=== PATIENT | male | born 1955 | race Two or more races ===

== ENCOUNTER 2019-12-20 06:26 | Day surgery (SDC) | payer OTHER, SELFPAY ==
--- NOTE | 2019-12-19 12:05 | HO.ANESPROP2 ---
Documented by User: July Keenan 12/19/19 12:06 HPI - Anesthesia Eval Consult details Narrative: 64yo M for Colonoscopy [facility] Past Medical History Medical History Abnormal colonoscopy Elevated LFTs HTN (hypertension) Hypothyroidism Surgical History Surgical History Hx of appendectomy Social History Social History Smoking Status: Never smoker Second Hand Smoke Exposure: Yes Use of substances other than those prescribed or required for medical reasons: No Advance Directives: No Meds Allergies Allergy/AdvReac Type Severity Reaction Status Date / Time penicillin G Allergy Unknown hives Verified 12/19/19 11:27 Home Medications Medication Instructions Recorded Confirmed Type levothyroxine 112 mcg DAILY 12/19/19 12/20/19 History metoprolol succinate 25 mg PO DAILY 12/19/19 12/19/19 History milk thistle 12/19/19 History niacin 500 mg PO DAILY 12/19/19 12/19/19 History omega-3 fatty acids-vitamin E cap 12/19/19 History [Fish Oil] saw palmetto 12/19/19 12/19/19 History Exam Exam Date and Time: December 19, 2019 1205 Assessment and Plan Assessment Anesthesia Assessment: Chart Reviewed Documented by User: Richi Wynn 12/20/19 07:08 [facility] Past Medical History Medical History Abnormal colonoscopy Elevated LFTs HTN (hypertension) Hypothyroidism Surgical History Surgical History Hx of appendectomy Social History Social History Smoking Status: Never smoker Second Hand Smoke Exposure: Yes Use of substances other than those prescribed or required for medical reasons: No Advance Directives: No Meds Allergies Allergy/AdvReac Type Severity Reaction Status Date / Time penicillin G Allergy Unknown hives Verified 12/19/19 11:27 Home Medications Medication Instructions Recorded Confirmed Type levothyroxine 112 mcg DAILY 12/19/19 12/20/19 History metoprolol succinate 25 mg PO DAILY 12/19/19 12/19/19 History milk thistle 12/19/19 History niacin 500 mg PO DAILY 12/19/19 12/19/19 History omega-3 fatty acids-vitamin E cap 12/19/19 History [Fish Oil] saw palmetto 12/19/19 12/19/19 History Exam Airway Mallampati Class: II TM Dist: >3cm Neck ROM: Full Loose/Missing/Broken Teeth: No ([id number]+[id number]) Heart: cta b/l Assessment and Plan Assessment Anesthesia Assessment: Anesthesia Plan Discussed, Smoking Cess. Discussed and PAT Visit Final Anesthetic Review NPO: Yes ASA Class: II Final Preanesthetic Review: No Changes in Pt Med Stat, Meds/Allgs Chart Reviewed, Consent Obtained/Reviewed and Anes Risks/Benef Reviewed Patient Risk: Low Procedure Risk: Low Assessment/Block/Sedation in SS: Assess/Block/Sedation-SS Anesthetic Plan Anesthetic Plan: MAC: Disposition: Standard PACU
[2019-12-20 06:44] VITALS: BMI 21.9
[2019-12-20 06:52] VITALS: BP 127/86; PULSE 56; RESP 16; TEMP 36.3; O2SAT 100
[2019-12-20] MEDS: Lactated Ringers 1,000 ML 100 ML IVCONT (07:03)
[2019-12-20 08:36] VITALS: BP 90/56; PULSE 58; RESP 14; TEMP 37.1; O2SAT 100
--- NOTE | 2019-12-20 08:38 | PM.OP ---
Brief Operative Note Date of procedure: 12/20/19 Pre-op diagnosis: Screening Post-op diagnosis: other (Colon polyp, Diverticulosis, Internal hemorrhoids) Procedure: Colonoscopy to cecum with biopsy and removal of polyp Surgeon: Shashank Hickey Anesthesia: MAC Estimated blood loss (mL): 2.0 Pathology: other (A. Cecal polyp) Condition: stable Disposition: PACU
[2019-12-20 08:51] VITALS: BP 106/56; PULSE 59; RESP 16; TEMP 37.1; O2SAT 100
--- NOTE | 2019-12-20 09:13 | HO.POSTANES ---
Post Anesthesia Evaluation Post Anesthesia Evaluation Vital Signs: Vital Signs Temp Pulse Resp BP Pulse Ox 12/20/19 08:51 98.7 F 59 16 106/56 L 100 12/20/19 08:36 98.7 F 58 14 90/56 L 100 12/20/19 06:52 97.4 F 56 16 127/86 100 Anesthesia: Monitored Mental Status: Awake Pain Control: Satisfactory Nausea/Vomiting: None Hydration: Adequate Anesthesia-Related Issues: No Anes. Related Issues
--- NOTE | 2019-12-20 09:40 | OP_ITS ---
SURGEON: Shashank Hickey MD INDICATIONS: The patient presents for evaluation of colorectal cancer screening. Full consent has been obtained from him for this, including risks of bleeding and perforation. PREOPERATIVE DIAGNOSIS: Colorectal cancer screening. POSTOPERATIVE DIAGNOSIS: Colorectal cancer screening, small colon polyp, mild sigmoid diverticulosis, internal hemorrhoids. PROCEDURE PERFORMED: Colonoscopy to cecum with biopsy and removal of polyp. ESTIMATED BLOOD LOSS: COMPLICATIONS: ANESTHESIA: Monitored anesthesia care. ASSISTANTS: SPECIMENS: DESCRIPTION OF PROCEDURE: The patient was placed in the left lateral decubitus position. The digital rectal exam revealed no abnormalities. The Olympus video pediatric colonoscope was entered into the rectum and advanced easily to the cecum. Once in the cecum, I did identify normal-appearing cecal pouch with appendiceal orifice and a normal-appearing ileocecal valve. The entire cecum was well visualized and appeared normal other than an approximately 3 mm polyp, which was biopsied and completely removed with cold biopsy forceps. There was transillumination of light deep in the right lower quadrant. The scope was then slowly withdrawn assessing all mucosal surfaces carefully. Preparation was excellent. I did not visualize any other polyps, colitis, nor angiodysplasia. There was a mild amount of sigmoid diverticulosis. In the rectum, scope was retroflexed visualizing internal hemorrhoids, but no other pathology. The rectal mucosa appeared normal. The scope was straightened out and withdrawn from the patient. He tolerated the procedure well and was returned to recovery area in stable condition. IMPRESSION: 1. Small colon polyp, status post biopsy and removal. 2. Mild sigmoid diverticulosis. 3. Internal hemorrhoids. PLAN: The results of the biopsy will be checked. If this is a tubular adenoma, I would recommend a followup colonoscopy in 5 years. If it is only hyperplastic, I would then recommend a followup colonoscopy in 10 years. He will otherwise see me on a p.r.n. basis. MD LALITA Herrera/LOTTIE / [phone]
== END 2019-12-20 09:10 | disposition home or self-care (01) ==
PROVIDERS: PCP Internal Medicine; Visit Provider Internal Medicine
PROC: 0DJD8ZZ Inspection of Lower Intestinal Tract, Via Natural or Artificial Opening Endoscopic (ICD-10-PCS; CPT 45378; principal; 2019-12-20 07:30)
DX: Z12.11 Encounter for screening for malignant neoplasm of colon (principal); Z83.71 Family history of colonic polyps; K63.5 Polyp of colon; K62.1 Rectal polyp; K57.30 Diverticulosis of large intestine without perforation or abscess without bleeding; K64.8 Other hemorrhoids; I10 Essential (primary) hypertension; E03.9 Hypothyroidism, unspecified; Z79.899 Other long term (current) drug therapy; Z88.0 Allergy status to penicillin
CPT/HCPCS: 45380; 88305

== ENCOUNTER 2020-02-23 11:02 | Outpatient (REF) | payer OTHER, SELFPAY ==
[2020-02-23 14:43] LABS: Cholesterol 257 mg/dL; HDL Cholesterol 41 mg/dL; LDL Cholesterol Calculated 191 mg/dl; Triglycerides 125 mg/dL
[2020-02-23 15:03] LABS: Free T4 (Free Thyroxine) 1.29 ng/dL (0.71-1.85)
[2020-02-24 09:42] LABS: Triiodothyronine T3 Free 3.7 pg/mL (2.3-4.2)
== END 2020-02-23 11:03 | disposition home or self-care (01) ==
LOC: HO.HMGCLDS 11:02
PROVIDERS: PCP Internal Medicine; Visit Provider Internal Medicine
DX: E78.2 Mixed hyperlipidemia (principal); E03.9 Hypothyroidism, unspecified; N40.0 Benign prostatic hyperplasia without lower urinary tract symptoms; I10 Essential (primary) hypertension; R79.89 Other specified abnormal findings of blood chemistry; Z12.5 Encounter for screening for malignant neoplasm of prostate
CPT/HCPCS: 36415; 80061; 84439; 84481

== ENCOUNTER 2020-09-18 08:33 | Outpatient (REF) | payer OTHER, SELFPAY ==
[2020-09-18 11:21] LABS: Hematocrit 48.6 % (42-52); Hemoglobin 16.2 g/dl (14.0-18.0); Mean Corpuscular HGB Conc 33.3 g/dl (31.0-36.0); Mean Corpuscular Hemoglobin 29.9 pg (27.0-33.0); Mean Corpuscular Volume 89.8 fL (80-98); Mean Platelet Volume 9.5 fL (9.4-12.4); Platelet Count 254 X10*3/uL (160-400); Red Blood Count 5.41 X10*6/uL (4.60-5.80); Red Cell Distribution Width 13.3 % (11.0-16.0); White Blood Count 6.5 X10*3/uL (4.8-10.8)
[2020-09-18 12:29] LABS: Alanine Aminotransferase 23 U/L (0-40); Albumin Level 4.6 g/dL (3.5-5.0); Alkaline Phosphatase 134 U/L (39-117); Anion Gap 14 (12-20); Aspartate Amino Transferase 25 U/L (5-37); Bilirubin Total 0.9 mg/dL (0.0-1.0); Blood Urea Nitrogen 16 mg/dL (9-16); Calcium 10.1 mg/dL (8.4-10.2); Carbon Dioxide 27 mmol/L (22-29); Chloride 101 mmol/L (96-108); Cholesterol 239 mg/dL; Estimated Glomerular Filt Rate 52; HDL Cholesterol 39 mg/dL; LDL Cholesterol Calculated 173 mg/dl; Potassium 4.6 mmol/L (3.3-5.1); Sodium 137 mmol/L (135-145); Total Protein 7.5 g/dL (6.5-8.0); Triglycerides 137 mg/dL
[2020-09-18 12:43] LABS: Glucose Fasting 92 mg/dL (60-99)
[2020-09-18 12:53] LABS: TSH reflex Free T4 0.01 uIU/mL (0.32-4.0)
[2020-09-18 13:52] LABS: Prostate Specific Antigen Scr 4.81 ng/mL (<0.05-4.0)
== END 2020-09-18 08:34 | disposition home or self-care (01) ==
LOC: HO.HMGCLDS 08:33
PROVIDERS: PCP Internal Medicine; Visit Provider Internal Medicine
DX: Z00.00 Encounter for general adult medical examination without abnormal findings (principal); Z12.5 Encounter for screening for malignant neoplasm of prostate; E03.9 Hypothyroidism, unspecified; I10 Essential (primary) hypertension; N40.0 Benign prostatic hyperplasia without lower urinary tract symptoms; R79.89 Other specified abnormal findings of blood chemistry; E78.5 Hyperlipidemia, unspecified
CPT/HCPCS: 36415; 80053; 80061; 84153; 84439; 84443; 85027

== ENCOUNTER → 2020-11-27 15:04 | Outpatient (BNVA) | payer OTHER, SELFPAY | PROVIDERS: PCP Internal Medicine; Visit Provider Urology ==

== ENCOUNTER 2021-01-15 09:47 | Outpatient (REF) | payer OTHER, SELFPAY ==
[2021-01-15 12:15] LABS: PSA,Total (Free>4and<10) 2.44 ng/mL (0.00-4.00)
== END 2021-01-15 09:48 | disposition home or self-care (01) ==
LOC: HO.HMGCLDS 09:47
PROVIDERS: PCP Internal Medicine; Visit Provider Urology
DX: N40.0 Benign prostatic hyperplasia without lower urinary tract symptoms (principal); Z12.5 Encounter for screening for malignant neoplasm of prostate
CPT/HCPCS: 36415; 84153

== ENCOUNTER → 2021-01-28 08:44 | Outpatient (BNVA) | payer OTHER, SELFPAY | PROVIDERS: PCP Internal Medicine; Visit Provider Urology ==

== ENCOUNTER 2021-02-25 09:29 | Outpatient (REF) | payer OTHER, SELFPAY ==
[2021-02-25 12:17] LABS: Prostate Specific Antigen 2.04 ng/mL (<0.05-4.0)
== END 2021-02-25 09:30 | disposition home or self-care (01) ==
LOC: HO.HMGCLDS 09:29
PROVIDERS: Urology; Visit Provider Internal Medicine
DX: Z12.5 Encounter for screening for malignant neoplasm of prostate (principal); N40.1 Benign prostatic hyperplasia with lower urinary tract symptoms; N13.8 Other obstructive and reflux uropathy
CPT/HCPCS: 36415; 84153

== ENCOUNTER 2021-02-28 12:48 | Outpatient (REF) | payer OTHER, SELFPAY ==
[2021-02-28 13:47] LABS: Hematocrit 45.6 % (42.0-52.0); Hemoglobin 15.4 g/dl (14.0-18.0); Mean Corpuscular HGB Conc 33.8 g/dl (31.0-36.0); Mean Corpuscular Hemoglobin 30.3 pg (27.0-33.0); Mean Corpuscular Volume 89.8 fL (80.0-98.0); Mean Platelet Volume 9.6 fL (9.4-12.4); Platelet Count 238 X10*3/uL (160-400); Red Blood Count 5.08 X10*6/uL (4.60-5.80); Red Cell Distribution Width 13.2 % (11.0-16.0); White Blood Count 7.6 X10*3/uL (4.8-10.8)
[2021-02-28 14:11] LABS: Alanine Aminotransferase 30 U/L (0-40); Albumin Level 4.5 g/dL (3.5-5.0); Alkaline Phosphatase 126 U/L (39-117); Anion Gap 11 (12-20); Aspartate Amino Transferase 36 U/L (5-37); Bilirubin Total 0.7 mg/dL (0.0-1.0); Blood Urea Nitrogen 20 mg/dL (9-16); Calcium 9.9 mg/dL (8.4-10.2); Carbon Dioxide 29 mmol/L (22-29); Chloride 103 mmol/L (96-108); Cholesterol 288 mg/dL; Estimated Glomerular Filt Rate > 60; Glucose Fasting 95 mg/dL (60-99); HDL Cholesterol 38 mg/dL; LDL Cholesterol Calculated 221 mg/dl; Potassium 4.4 mmol/L (3.3-5.1); Sodium 139 mmol/L (135-145); Total Protein 7.5 g/dL (6.5-8.0); Triglycerides 148 mg/dL
[2021-02-28 14:33] LABS: TSH reflex Free T4 0.03 uIU/mL (0.32-4.0)
[2021-02-28 15:07] LABS: Free T4 (Free Thyroxine) 1.24 ng/dL (0.71-1.85)
== END 2021-02-28 12:49 | disposition home or self-care (01) ==
LOC: HO.HMGCLDS 12:48
PROVIDERS: PCP Internal Medicine; Visit Provider Internal Medicine
DX: Z00.00 Encounter for general adult medical examination without abnormal findings (principal); E03.9 Hypothyroidism, unspecified; E78.5 Hyperlipidemia, unspecified; I10 Essential (primary) hypertension
CPT/HCPCS: 36415; 80053; 80061; 84439; 84443; 85027

== ENCOUNTER 2021-06-06 09:03 | Outpatient (REF) | payer OTHER, SELFPAY ==
[2021-06-06 12:11] LABS: TSH reflex Free T4 0.01 uIU/mL (0.32-4.0)
[2021-06-06 13:12] LABS: Free T4 (Free Thyroxine) 1.45 ng/dL (0.71-1.85)
== END 2021-06-06 09:04 | disposition home or self-care (01) ==
LOC: HO.HMGCLDS 09:03
PROVIDERS: Visit Provider Internal Medicine
DX: E03.9 Hypothyroidism, unspecified (principal)
CPT/HCPCS: 36415; 84439; 84443

== ENCOUNTER 2022-05-18 09:57 | Outpatient (REF) | payer OTHER, SELFPAY ==
[2022-05-18 11:24] LABS: Hematocrit 43.9 % (42.0-52.0); Hemoglobin 14.6 g/dl (14.0-18.0); Mean Corpuscular HGB Conc 33.3 g/dl (31.0-36.0); Mean Corpuscular Hemoglobin 30.1 pg (27.0-33.0); Mean Corpuscular Volume 90.5 fL (80.0-98.0); Mean Platelet Volume 9.6 fL (9.4-12.4); Platelet Count 237 X10*3/uL (160-400); Red Blood Count 4.85 X10*6/uL (4.60-5.80); Red Cell Distribution Width 13.2 % (11.0-16.0); White Blood Count 7.6 X10*3/uL (4.8-10.8)
[2022-05-18 11:34] LABS: Alanine Aminotransferase 22 U/L (0-40); Albumin Level 4.2 g/dL (3.5-5.0); Alkaline Phosphatase 157 U/L (39-117); Anion Gap 14 (12-20); Aspartate Amino Transferase 25 U/L (5-37); Bilirubin Total 0.7 mg/dL (0.0-1.0); Blood Urea Nitrogen 17 mg/dL (9-16); Calcium 9.2 mg/dL (8.4-10.2); Carbon Dioxide 27 mmol/L (22-29); Chloride 106 mmol/L (96-108); Cholesterol 143 mg/dL; Estimated Glomerular Filt Rate 53; Glucose Fasting 100 mg/dL (60-99); HDL Cholesterol 38 mg/dL; LDL Cholesterol Calculated 90 mg/dl; Potassium 4.5 mmol/L (3.3-5.1); Sodium 142 mmol/L (135-145); Total Protein 6.7 g/dL (6.5-8.0); Triglycerides 78 mg/dL
== END 2022-05-18 09:58 | disposition home or self-care (01) ==
LOC: HO.HMGCLDS 09:57
PROVIDERS: PCP Internal Medicine; Visit Provider Internal Medicine
DX: Z00.00 Encounter for general adult medical examination without abnormal findings (principal); E03.9 Hypothyroidism, unspecified; E78.5 Hyperlipidemia, unspecified; I10 Essential (primary) hypertension
CPT/HCPCS: 36415; 80053; 80061; 85027

== ENCOUNTER 2022-05-26 13:53 | Outpatient (REF) | payer OTHER, MEDICARE, SELFPAY ==
[2022-05-26 17:40] LABS: PSA,Total (Free>4and<10) 2.21 ng/mL (0.00-4.00); TSH reflex Free T4 0.52 uIU/mL (0.32-4.0)
== END 2022-05-26 13:54 | disposition home or self-care (01) ==
LOC: HO.HMGCLDS 13:53
PROVIDERS: PCP Internal Medicine; Visit Provider Internal Medicine
DX: Z00.00 Encounter for general adult medical examination without abnormal findings (principal); E03.9 Hypothyroidism, unspecified; Z12.5 Encounter for screening for malignant neoplasm of prostate
CPT/HCPCS: 36415; 84153; 84443

== ENCOUNTER 2022-09-01 08:48 | Outpatient (AMB) | payer OTHER, SELFPAY ==
--- NOTE | 2022-09-01 09:01 | A.OFFVIS_ITS ---
Intake Intake Visit Reasons: 1Y PSA/BPH(SET) Intake Note: Patient is present for Follow Up PSA/PVR Urology Med: Finasteride, Tamsulosin Antibiotic Allergy: Penicillin Blood Thinner: None PVR: 45ml Allergies penicillin G Allergy (Unknown, Verified 09/01/22 09:03) hives Medication List - Last Reconciled 09/01/22 by Med Watts MD levothyroxine 112 mcg PO DAILY metoprolol succinate ER 25 mg PO DAILY [milk thistle ] niacin 500 mg PO DAILY omega-3 fatty acids-vitamin E 1,000 mg caps [saw palmetto ] HPI HPI Comments History of Present Illness Details Harsha is a pleasant male. He is a patient of Dr. Durbin. He is seen for the following urologic conditions - lower urinary tract symptoms PSA remains low No longer taking prostate medications Minimal symptoms Follow-up 12 months Lower urinary tract symptoms Current evaluation for response to therapy Initial presentation for lower urinary tract symptoms Associated elevated PSA Has weakness of stream and nocturia 2-3 times Current medications - Prior therapy includes combination medication DIOMEDES large prostate PSA 02/27 2.1, 09/28 4.8, 01/28 2.4, 03/01 2.1, 05/31 2.2 PFSH Medical History Abnormal colonoscopy Annual physical exam Annual physical exam BPH (benign prostatic hyperplasia) Hoarseness HTN (hypertension) Hyperlipemia Hypothyroidism Surgical History Hx of appendectomy Family History Father Diabetes Mother Hypertension Social History Housing: House Patient Tobacco Use Status: Never used Tobacco e-Cigarette/Vaping Use: Never Used Second Hand Smoke Exposure: Yes Current occupational status: retired Cognitive needs: No Hearing needs: No Vision needs: Yes Review of Systems Const Denies chills and Denies fever(s) Card Reports no additional complaints and Denies syncope Resp Denies cough GI Denies abdominal pain and Denies heartburn Reports as per HPI and Denies change in libido Neuro Denies syncope Psych Denies change in libido Endo Denies change in libido Physical Exam Const General: cooperative, healthy appearing, comfortable and no acute distress Orientation/consciousness: patient oriented x3 HEENT Face and sinus: Yes normal facial exam Mouth: moist mucous membranes Neck Neck: Yes normal visual inspection, Yes full ROM and Yes trachea midline Chest Chest palpation & inspection: normal inspection of the chest Resp Effort & Inspection: normal respiratory effort, able to speak in complete sentences and no respiratory distress GI Inspection: Yes normal to inspection Back/Spine/Pelvis Cervical Spine: normal cervical lordosis Thoracic/Lumbar Spine: thoracic and lumbar spine normal to inspection Skin General skin exam: no rashes or lesions noted Neuro General: patient oriented x3, gait normal, tone normal and moves all extremities Extrem General: Yes normal to inspection and Yes capillary refill normal Office Procedures Post Void Residual Post Residual Void Post Void Residual (PVR): 45 11888-Brdb Void Residual by ultrasound Results AMB Urinalysis, Automated UA Leukoctes 0 Raya/uL Last Edit by Malu Johnson [facility] on 09/01/22 09:09 UA Nitrite Negative Last Edit by Malu Johnson [facility] on 09/01/22 09:09 UA Urobilinogen 0.2 mg/dL Last Edit by Malu Johnson A on 09/01/22 09:0 9 UA Protein 0 mg/dL Last Edit by Malu Johnson [facility] on 09/01/22 09:09 UA pH 5.5 Last Edit by Malu Johnson A on 09/01/22 09:09 UA Blood 0 Zaid/uL Last Edit by Malu Johnson [facility] on 09/01/22 09:09 UA Specific Casar 1.030 Last Edit by Malu Johnson [facility] on 09/01/22 09: 09 UA Ketone Negative Last Edit by Malu Johnson [facility] on 09/01/22 09:09 UA Bilirubin 0 mg/dL Last Edit by Malu Johnson [facility] on 09/01/22 09:09 UA Glucose 0 mg/dL Last Edit by Malu Johnson [facility] on 09/01/22 09:09 Results Reviewed Results Reviewed: Laboratory Last Values Urine pH (Auto) 5.5 09/01/22 09:04 Specific Casar (Auto) 1.030 09/01/22 09:04 Urine Protein (Auto) 0 mg/dL 09/01/22 09:04 Glucose (UA)(Auto) 0 mg/dL 09/01/22 09:04 Urine Ketones (Auto) Negative 09/01/22 09:04 Urine Blood (Auto) 0 Zaid/uL 09/01/22 09:04 Urine Nitrite (Auto) Negative 09/01/22 09:04 Urine Bilirubin (Auto) 0 mg/dL 09/01/22 09:04 Urine Urobilinogen (Auto) 0.2 mg/dL 09/01/22 09:04 Leukocyte Esterase (Auto) 0 Raya/uL 09/01/22 09:04 Assessment & Plan Assessment & Plan (1) Nocturia more than twice per night: Code(s): R35.1 - Nocturia (2) BPH (benign prostatic hyperplasia): Code(s): N40.0 - Benign prostatic hyperplasia without lower urinary tract symptoms Plan Twelve month follow-up Orders: Orders Prostate Specific Antigen 364 Days R35.1 - Nocturia AMB Urinalysis Automated Today Z13.9 - Encounter for screening, unspecified AMB Post Void Residual by ultrasound Today N40.0 - Benign prostatic hyperplasia without lower urinary tract symptoms Patient Instructions: Imaging studies, laboratory and physical exam results were discussed and reviewed in detail. No major barriers to patient understanding were identified. An opportunity to ask questions regarding the treatment plan was provided. All questions were answered. The patient expressed understanding and agreement with the above treatment plan. The patient is aware they should contact our office by phone for worsening of their current condition or the appearance of new urologic symptoms. Compliance is encouraged with any medications and followup testing that is ordered. It is a privilege to participate in the urologic care of your patient. If you have any questions or concerns regarding treatment for the above conditions, or other urologic issues, please do not hesitate to contact me. The office telephone contact is [phone]. This note is constructed using voice recognition software. While every effort has been made to ensure accuracy juvenile corrections officer errors may have been included. Yours sincerely, Dr Med Watts MD, [facility] Urology Providers of Expert, Compassionate Care for the Genitourinary System Coding Level of Care Code Est Pt Level 4 (42174) Diagnoses Nocturia more than twice per night R35.1 BPH (benign prostatic hyperplasia) N40.0 CPT Codes Post Residual Void - PVR CPT Code: 80376-Vfgy Void Residual by ultrasound ([id number])
== END 2022-09-01 09:47 | disposition home or self-care (01) ==
PROVIDERS: PCP Internal Medicine; Visit Provider Urology
DX: R35.1 Nocturia (principal); N40.0 Benign prostatic hyperplasia without lower urinary tract symptoms
CPT/HCPCS: 99214

== ENCOUNTER → 2022-09-01 08:48 | Outpatient (BNVA) | payer OTHER, SELFPAY | PROVIDERS: PCP Internal Medicine; Visit Provider Urology | DX: N40.0 Benign prostatic hyperplasia without lower urinary tract symptoms (principal); R35.1 Nocturia | CPT/HCPCS: 51798 ==

== ENCOUNTER 2023-03-05 09:07 | Outpatient (AMB) | payer OTHER, SELFPAY ==
--- NOTE | 2023-03-05 09:27 | MHC.OFFWIV ---
Intake Vital Signs 03/05/23 09:32 Height 5 ft 6 in Weight 156 lb BMI 25.2 BP 110/82 Blood Pressure Location Lt brachial Position Sitting Pulse 68 Pulse Source Pulse Oximeter Temp 98.2 F Temp Source Oral Pulse Oximetry (%) 95 Oxygen Delivery Method Room Air Intake Visit Reasons: EP Cough, Headache [phone] Intake Note: Pt is here today c/o cough and h/a x2wks Patient Tobacco Use Status: Never used Tobacco Allergies penicillin G Allergy (Unknown, Verified 03/05/23 09:28) hives Do you need a note to return to daycare/school/sports/work: No HPI HPI Comments History of Present Illness Details This is a 67-year-old male with history of hypertension, hyperlipidemia, hypothyroidism, and BPH who presented to the walk-in clinic complaining of a mildly productive cough for the past 2 weeks. Patient states he had some viral URI symptoms approximately 2 weeks ago including nasal/sinus congestion/rhinorrhea, postnasal drip, sore throat, etc. Those symptoms all resolved but then he developed a mild cough, which is occasionally productive with clear to yellow sputum. He denies any fevers or chills. He denies any lower extremity edema. He denies any chest pain or shortness of breath. [facility] Medical History Abnormal colonoscopy Annual physical exam Annual physical exam BPH (benign prostatic hyperplasia) Hoarseness HTN (hypertension) Hyperlipemia Hypothyroidism Surgical History Hx of appendectomy Family History Father Diabetes Mother Hypertension Social History Housing: House Patient Tobacco Use Status: Never used Tobacco e-Cigarette/Vaping Use: Never Used Second Hand Smoke Exposure: Yes Current occupational status: retired Cognitive needs: No Hearing needs: No Vision needs: Yes Review of Systems Const All systems reviewed & are unremarkable except as noted in HPI and below Reports no additional complaints Eyes Reports no additional complaints ENT Reports no additional complaints Card Reports no additional complaints Resp Reports no additional complaints GI Reports no additional complaints Reports no additional complaints Musc Reports no additional complaints Skin/Breast Reports system reviewed and no additional complaints, except as documented Neuro Reports no additional complaints Psych Reports no additional complaints Endo Reports no additional complaints Gt/Lymph Reports no additional complaints Aller/Immun Reports no additional complaints Physical Exam Vital Signs: Last Vital Signs Temp 98.2 F 03/05/23 09:32 Pulse 68 03/05/23 09:32 BP 110/82 03/05/23 09:32 Pulse Ox 95 03/05/23 09:32 Oxygen Delivery Method Room Air 03/05/23 09:32 BMI result Body Mass Index 25.2 Const Other: Vital signs reviewed. Constitutional: Non-toxic appearing. No acute distress. Well-developed and well-nourished. HEENT: Normocephalic and atraumatic. Tympanic membranes without erythema, edema, or bulging bilaterally. External auditory canals without erythema or edema bilaterally. Moist mucous membranes. No pharyngeal erythema or exudates. Skin: Warm and dry. No rashes or lesions noted. Neck: Full and painless range of motion. No cervical lymphadenopathy. Cardio: Regular rate and rhythm. No murmurs, gallops, or rubs. No lower extremity edema. No JVD. Pulmonary: No respiratory distress. No accessory muscle usage. There is a very small area of fine crackles of the left lower lobe but otherwise lungs are clear to auscultation bilaterally. Gastrointestinal: Soft, nontender, and nondistended in all 4 quadrants. Musculoskeletal: Normal range of motion in joints throughout the body. No deformity or other signs of injury. Neuro: Alert and oriented x4. Cranial nerves 2-12 grossly intact. No focal deficits appreciated. Psych: Normal mood and affect. Assessment & Plan Assessment & Plan (1) Cough: Code(s): R05.9 - Cough, unspecified Qualifiers: Cough type: acute Qualified Code(s): R05.1 - Acute cough Plan This is a 67-year-old male who presented to the walk-in clinic complaining of a mildly productive cough for the past several days following a viral URI symptoms for the past 2 weeks. On physical examination, the patient has a very small area fine crackles of the left lower lobe concerning for possible pneumonia versus possible atelectasis. The patient's physical exam is otherwise benign in his vital signs are stable. Differential diagnosis includes pneumonia versus post viral cough. I ordered a chest x-ray for further evaluation; if chest x-ray shows pneumonia, I will send antibiotics. Otherwise, I recommended symptomatic management including rest, increase fluids, [id number] medications such as guaifenesin, capacol throat lozenges, etc. and I have sent a prescription for PO benzonatate 100mg three times daily as needed for cough. Patient was extremely appreciative for the recommendations and care provided today. Orders: Orders XR chest 2V Today R09.89 - Other specified symptoms and signs involving the circulatory and respiratory systems SARS-CoV2/FLU/RSV Today R09.89 - Other specified symptoms and signs involving the circulatory and respiratory systems Medications: New benzonatate 100 mg PO TID PRN 20 caps 0RF cough Coding Level of Care Code Est Pt Level 3 (29792) Diagnoses Acute cough R05.1 Cough type: acute
[2023-03-05 09:32] VITALS: BP 110/82; PULSE 68; TEMP 36.8; O2SAT 95; BMI 25.2
== END 2023-03-05 10:44 | disposition home or self-care (01) ==
PROVIDERS: PCP Internal Medicine; Visit Provider Physician Assistant Medical
DX: R05.1 Acute cough (principal)
CPT/HCPCS: 99213

== ENCOUNTER 2023-03-05 09:47 | Outpatient (REF) | payer OTHER, SELFPAY ==
--- NOTE | ~2023-03-05 | XR_ITS ---
EXAMINATION: XR CHEST CLINICAL INFORMATION: Other specified symptoms and signs involving the circulatory and respiratory system COMPARISON: None available. TECHNIQUE: 2 views of the chest were obtained. FINDINGS: No significant abnormality is noted involving the heart, lungs, mediastinum, bony thorax or soft tissues. XR/XR chest 2V IMPRESSION: Unremarkable examination.
[2023-03-05 15:06] LABS: Influenza A PCR NEGATIVE (Negative); Influenza B PCR NEGATIVE (Negative); Resp Syncy Virus RNA Qual PCR NEGATIVE (Negative); SARS COV2 PCR INHOUSE NEGATIVE (Negative)
== END 2023-03-05 09:48 | disposition home or self-care (01) ==
LOC: HO.HMGCX 09:47
PROVIDERS: PCP Internal Medicine; Visit Provider Physician Assistant Medical
DX: R09.89 Other specified symptoms and signs involving the circulatory and respiratory systems (principal); Z11.52 Encounter for screening for COVID-19; Z20.828 Contact with and (suspected) exposure to other viral communicable diseases
CPT/HCPCS: 0241U; 71046

== ENCOUNTER 2023-05-24 08:23 | Outpatient (REF) | payer OTHER, SELFPAY ==
[2023-05-24 10:26] LABS: MANUAL DIFF FLAG NO
[2023-05-24 10:32] LABS: Basophils Absolute Auto 0.1 X10*3/uL (0.0-0.2); Basophils Percent Auto 1.2 % (0-2); Eosinophils Absolute Auto 0.4 X10*3/uL (0.0-0.4); Eosinophils Percent Auto 6.2 % (0-4); Hematocrit 44.3 % (42.0-52.0); Hemoglobin 14.7 g/dl (14.0-18.0); Imm Gran Abs Auto 0.02 X10*3/uL (0.00-0.03); Imm Gran Pct Auto 0.3 % (0.0-0.4); Lymphocytes Percent Auto 34.9 % (20-40); Mean Corpuscular HGB Conc 33.2 g/dl (31.0-36.0); Mean Corpuscular Hemoglobin 30.1 pg (27.0-33.0); Mean Corpuscular Volume 90.8 fL (80.0-98.0); Mean Platelet Volume 9.6 fL (9.4-12.4); Monocytes Absolute Auto 0.4 X10*3/uL (0.1-1.2); Monocytes Percent Auto 7.4 % (2-11); Neutrophils Absolute Auto 2.9 x10*3/uL (2.0-8.3); Platelet Count 235 X10*3/uL (160-400); Red Blood Count 4.88 X10*6/uL (4.60-5.80); Red Cell Distribution Width 13.2 % (11.0-16.0); White Blood Count 5.9 X10*3/uL (4.8-10.8)
[2023-05-24 10:52] LABS: Alanine Aminotransferase 20 U/L (0-40); Albumin Level 4.2 g/dL (3.5-5.0); Alkaline Phosphatase 123 U/L (39-117); Anion Gap 12 (12-20); Aspartate Amino Transferase 22 U/L (5-37); Bilirubin Total 0.3 mg/dL (0.0-1.0); Blood Urea Nitrogen 17 mg/dL (9-16); Calcium 9.4 mg/dL (8.4-10.2); Carbon Dioxide 26 mmol/L (22-29); Chloride 107 mmol/L (96-108); Cholesterol 179 mg/dL (<200); Estimated Glomerular Filt Rate 59; Glucose Fasting 106 mg/dL (60-99); HDL Cholesterol 38 mg/dL (>40); LDL Cholesterol Calculated 115 mg/dL (<100); Potassium 4.5 mmol/L (3.3-5.1); Sodium 140 mmol/L (135-145); Total Protein 7.1 g/dL (6.5-8.0); Triglycerides 132 mg/dL (<150)
[2023-05-24 11:04] LABS: Appearance Urine Clear; Color Urine Yellow; Glucose Urine UA Negative (Negative); Leukocyte Esterase Urine Negative (Negative); Nitrite Urine Negative (Negative); PH 7.5 (5.0-9.0); PSA,Total (Free>4and<10) 3.27 ng/mL (0.00-4.00); Specific Gravity - Urine 1.025 (1.005-1.025); Urine Blood Negative (Negative); Urine Ketones Trace mg/dL (Negative); Urine Protein Negative (Neg-Trace)
[2023-05-24 11:08] LABS: Bacteria Urine None Seen (None Seen); Hyaline Casts Urine 0-2 /LPF (0-2); RBC Urine 0-2 /HPF (0-2); Squamous Epithelial Cell Urine 0-2 /HPF (0-2); WBC Urine 0-5 /HPF (0-5)
[2023-05-24 11:12] LABS: TSH reflex Free T4 0.83 uIU/mL (0.32-4.0)
== END 2023-05-24 08:24 | disposition home or self-care (01) ==
LOC: HO.HMGCLDS 08:23
PROVIDERS: PCP Internal Medicine; Visit Provider Internal Medicine
DX: Z00.00 Encounter for general adult medical examination without abnormal findings (principal); Z12.5 Encounter for screening for malignant neoplasm of prostate; E78.5 Hyperlipidemia, unspecified; E03.9 Hypothyroidism, unspecified; I10 Essential (primary) hypertension
CPT/HCPCS: 36415; 80053; 80061; 81001; 84153; 84443; 85025

== ENCOUNTER 2023-05-28 10:26 | Outpatient (AMB) | payer OTHER, MEDICARE, SELFPAY ==
[2023-05-28 10:38] VITALS: BP 106/70; PULSE 77; O2SAT 95; BMI 24.5
--- NOTE | 2023-05-28 10:38 | A.OFFPC_ITS ---
Vital Signs 05/28/23 10:38 Height 5 ft 6 in Weight 152 lb BMI 24.5 BP 106/70 Blood Pressure Location Lt brachial Position Sitting Pulse 77 Pulse Source Pulse Oximeter Pulse Oximetry (%) 95 Oxygen Delivery Method Room Air Intake Visit Reasons: Annual PE Intake Note: Pt is here today for his PE Allergies penicillin G Allergy (Unknown, Verified 03/05/23 09:28) hives Medication List - Last Reconciled 05/28/23 by Rebeca Durbin MD levothyroxine 112 mcg PO DAILY metoprolol succinate ER 25 mg PO DAILY [milk thistle ] niacin 500 mg PO DAILY omega-3 fatty acids-vitamin E 1,000 mg caps [saw palmetto ] Tobacco use date assessed: 05/28/23 Fall risk assessment: No Falls in past year Last assessed Fall Risk: 05/28/23 Dental Screening Dental Screen Date: 05/28/23 Did you have a dental visit in the last 12 months?: Yes Did you have a dental problem in the last 6 months where you did not have access to dental care?: No Was dental information given to patient?: Patient has dentist HPI Annual PE HPI Details Patient presents for physical. He complains of intermittent wheezing worse when going to bed or with exertion since the upper respiratory infection last month. Patient patient has been using albuterol inhaler with some relief on and off up to 3 times a week. He exercise regularly for this 45 minutes on the stationary bike and denies exercise induced dyspnea on exertion or palpitations. Patient reports chronic allergic rhinitis and postnasal drip. He had allergy testing about 10 years ago but never completed immunotherapy. [facility] Medical History (Updated 05/28/23 @ 16:22 by Rebeca Durbin MD) HTN (hypertension) Annual physical exam Annual physical exam Hoarseness Hyperlipemia BPH (benign prostatic hyperplasia) Abnormal colonoscopy Hypothyroidism Surgical History Hx of appendectomy Family History Father Diabetes Mother Hypertension Social History Housing: House Patient Tobacco Use Status: Never used Tobacco e-Cigarette/Vaping Use: Never Used Second Hand Smoke Exposure: Yes Current occupational status: retired Cognitive needs: No Hearing needs: No Vision needs: Yes Questionnaire PHQ-9 Over the last 2 weeks, how often have you been bothered by any of the following problems? 1. Little interest or pleasure in doing things: not at all 2. Feeling down, depressed, or hopeless: not at all 3. Trouble falling or staying asleep, or sleeping too much: not at all 4. Feeling tired or having little energy: not at all 5. Poor appetite or overeating: not at all 6. Feeling bad about yourself - or that you are a failure or have let yourself or your family down: not at all 7. Trouble concentrating on things, such as reading the newspaper or watching television: not at all 8. Moving or speaking so slowly that other people could have noticed. Or the opposite - being so fidgety or restless that you have been moving around a lot more than usual: not at all 9. Thoughts that you would be better off or of hurting yourself in some way: not at all Total score: 0 Depression Screening Interpretation: Negative Depression Screening Done: Yes Source: Developed by Drs. Shashank Shaffer, Chayito Enriquez, Pedro Garces and colleagues, with an educational ryanne from [employer]. Thrive Questionnaire Date Thrive assessed: 05/28/23 I am a: Patient What is your living situation today?: I have a steady place to live Within the past 12 months, did the food you bought not last and you didn't have the money to get more?: Never true Within the past 12 months, did you worry whether your food would run out before you got money to buy more?: Never true Do you have trouble paying for medicines?: No Do you have trouble getting transportation to medical appointments?: No Do you have trouble paying your heating and electricity bill?: No Do you have trouble taking care of your child, family member or friend?: No Do you have trouble with day-to-day activities such as bathing, preparing meals, shopping, managing finances, etc.?: No Are you currently unemployed and looking for a job?: No Are you interested in more education?: No THRIVE Score: 0 AUDIT C Alcohol Use Questionnaire (AUDIT-C) 1. How often do you have a drink containing alcohol?: Monthly or less 2. How many drinks containing alcohol do you have on a typical day when you are drinking?: 1 or 2 3. How often do you have six or more drinks on one occasion?: Never Total Score: 1 KENDALL-7 AMB Questionnaire KENDALL-7 Date KENDALL - 7 assessed: 05/28/23 Feeling nervous, anxious, or on edge: 0 = Not at all Not being able to stop or control worryin = Not at all Worrying too much about different things: 0 = Not at all Trouble relaxin = Not at all Being so restless that it is hard to sit still: 0 = Not at all Becoming easily annoyed or irritable: 0 = Not at all Feeling afraid as if something awful might happen: 0 = Not at all Total KENDALL-7 score (0-4 normal; 5-9 mild; 10-14 moderate; 15-21 severe): 0 Source: Developed by Drs. Shashank Shaffer, Chayito Enriquez, Pedro Garces and colleagues, with an educational ryanne from [employer]. Review of Systems Const All systems reviewed & are unremarkable except as noted in HPI and below Reports no additional complaints Eyes Reports no additional complaints ENT Reports no additional complaints Card Reports no additional complaints Resp Reports no additional complaints GI Reports no additional complaints Reports no additional complaints Musc Reports no additional complaints Physical exam (Primary Care) Vital Signs: Last Vital Signs Pulse 77 05/28/23 10:38 BP 106/70 05/28/23 10:38 Pulse Ox 95 05/28/23 10:38 Oxygen Delivery Method Room Air 05/28/23 10:38 BMI result Body Mass Index 24.5 Tobacco/Smoking Status: Tobacco use Status Tobacco use date assessed 05/28/23 05/28/23 10:43 Patient Tobacco Use Status Never used Tobacco 05/28/23 10:43 e-Cigarette/Vaping Use Never Used 05/28/23 10:43 PHQ-9: PHQ-9 Score PHQ-9: Total score 0 05/28/23 11:04 Depression Screening Interpretation: Negative Thrive Assessment: Date of Thrive Assessment Date Thrive assessed 05/28/23 05/28/23 10:47 Const General: no acute distress HENMT Head: Yes normal to inspection Ears: hearing grossly normal bilaterally Face and sinus: Yes normal facial exam Mouth: Normal oral and palatal mucosa present Throat: Yes posterior oropharynx normal Eyes General: appearance normal, both eyes and all related structures Neck Neck: Yes no lymphadenopathy and Yes supple Resp Effort & Inspection: normal respiratory effort Auscultation: clear to auscultation bilaterally Cardio Rhythm: regular rhythm Heart sounds: S1 normal heart sound present and S2 normal heart sound present GI Inspection: Yes normal to inspection Palpation (GI): Soft to palpation Percussion: Yes normal to percussion Auscultation: normal bowel sounds Assessment and Plan Assessment & Plan (1) Multiple allergies: Code(s): Z88.9 - Allergy status to unspecified drugs, medicaments and biological substances Plan: Referred to sap solution manager consultant (2) Wheezing: Code(s): R06.2 - Wheezing Plan: Obtain PFTs to evaluate for asthma patient will continue to use albuterol inhaler he will follow-up after PFTs to discuss further treatment (3) Annual physical exam: Code(s): Z00.00 - Encounter for general adult medical examination without abnormal findings Plan: Well-balanced diet regular physical activity discussed with the patient (4) Abnormal colonoscopy: Comment: Sister had abnormal colonoscopy/polyps, 12/2019 2 hyperplastic polyps, recheck 10 yrs Code(s): R93.3 - Abnormal findings on diagnostic imaging of other parts of digestive tract (5) Hypothyroidism: Code(s): E03.9 - Hypothyroidism, unspecified Plan: Continue Levothyoxine Orders: Orders PFT pulmonary function test Today Referrals Allergy & Immunology Referral Z88.9 - Allergy status to unspecified drugs, medicaments and biological substances Coding Level of Care Code Est Pt Prev Care >65y(45834) Diagnoses Multiple allergies Z88.9 Wheezing R06.2 Annual physical exam Z00.00 Abnormal colonoscopy R93.3 Hypothyroidism E03.9
== END 2023-05-28 13:17 | disposition home or self-care (01) ==
PROVIDERS: Visit Provider Internal Medicine
DX: Z88.9 Allergy status to unspecified drugs, medicaments and biological substances (principal); R06.2 Wheezing; Z00.00 Encounter for general adult medical examination without abnormal findings; R93.3 Abnormal findings on diagnostic imaging of other parts of digestive tract; E03.9 Hypothyroidism, unspecified
CPT/HCPCS: 99397

== ENCOUNTER 2023-09-02 09:27 | Outpatient (AMB) | payer MEDICARE, OTHER, SELFPAY ==
--- NOTE | 2023-09-02 09:13 | A.OFFVIS_ITS ---
Intake Visit Reasons: 1Y Follow Up-PSA(set) Intake Note: Patient is present for Follow Up PSA Urology Med: Finasteride, Tamsulosin Antibiotic Allergy: Penicillin Blood Thinner: NONE Line Lead Required: No Allergies penicillin G Allergy (Unknown, Verified 09/02/23 09:14) hives [facility] Medical History (Updated 05/28/23 @ 16:22 by Rebeca Durbin MD) HTN (hypertension) Annual physical exam Annual physical exam Hoarseness Hyperlipemia BPH (benign prostatic hyperplasia) Abnormal colonoscopy Hypothyroidism Surgical History Hx of appendectomy Family History Father Diabetes Mother Hypertension Social History Housing: House Patient Tobacco Use Status: Never used Tobacco e-Cigarette/Vaping Use: Never Used Second Hand Smoke Exposure: Yes Current occupational status: retired Cognitive needs: No Hearing needs: No Vision needs: Yes Coding
--- NOTE | 2023-09-02 09:37 | A.OFFVIS_ITS ---
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 He is a patient of Dr. Durbin. He is seen for the following urologic conditions - lower urinary tract symptoms Yearly follow-up PSA has increased 1 point over 12 months This has occurred after stopping finasteride Symptoms have progressed in 12 months He would like to restart finasteride Prescription provided 12 month review Lower urinary tract symptoms Current evaluation for response to therapy Initial presentation for lower urinary tract symptoms Associated elevated PSA Has weakness of stream and nocturia 2-3 times Current medications - Prior therapy includes combination medication DIOMEDES large prostate PSA 02/27 2.1, 09/28 4.8, 01/28 2.4, 03/01 2.1, 05/31 2.2, 06/01 3.3 PFSH Medical History (Updated 05/28/23 @ 16:22 by Rebeca Durbin MD) HTN (hypertension) Annual physical exam Annual physical exam Hoarseness Hyperlipemia BPH (benign prostatic hyperplasia) Abnormal colonoscopy Hypothyroidism Surgical History Hx of appendectomy Family History Father Diabetes Mother Hypertension Social History Housing: House Patient Tobacco Use Status: Never used Tobacco e-Cigarette/Vaping Use: Never Used Second Hand Smoke Exposure: Yes Current occupational status: retired Cognitive needs: No Hearing needs: No Vision needs: Yes Review of Systems Const Denies chills and Denies fever(s) Card Reports no additional complaints and Denies syncope Resp Denies cough GI Denies abdominal pain and Denies heartburn Reports as per HPI and Denies change in libido Neuro Denies syncope Psych Denies change in libido Endo Denies change in libido Physical Exam Const General: cooperative, healthy appearing, comfortable and no acute distress Orientation/consciousness: patient oriented x3 HEENT Face and sinus: Yes normal facial exam Mouth: moist mucous membranes Neck Neck: Yes normal visual inspection, Yes full ROM and Yes trachea midline Chest Chest palpation & inspection: normal inspection of the chest Resp Effort & Inspection: normal respiratory effort, able to speak in complete sentences and no respiratory distress GI Inspection: Yes normal to inspection Back/Spine/Pelvis Cervical Spine: normal cervical lordosis Thoracic/Lumbar Spine: thoracic and lumbar spine normal to inspection Skin General skin exam: no rashes or lesions noted Neuro General: patient oriented x3, gait normal, tone normal and moves all extremities Extrem General: Yes normal to inspection and Yes capillary refill normal Office Procedures Post Void Residual Post Residual Void Post Void Residual (PVR): 0 44082-[id number] Void Residual by ultrasound Results AMB Urinalysis, Automated UA Leukoctes 0 Raya/uL Last Edit by DARREN Stratton on 09/02/23 09:50 UA Nitrite Negative Last Edit by DARREN Stratton on 09/02/23 09:50 UA Urobilinogen 0.2 mg/dL Last Edit by DARREN Stratton on 09/02/23 09:5 0 UA Protein 15 mg/dL Last Edit by DARREN Stratton on 09/02/23 09:50 UA pH 6.0 Last Edit by DARREN Stratton on 09/02/23 09:50 UA Blood 0 Zaid/uL Last Edit by DARREN Stratton on 09/02/23 09:50 UA Specific [place] 1.025 Last Edit by DARREN Stratton on 09/02/23 09: 50 UA Ketone Negative Last Edit by DARREN Stratton on 09/02/23 09:50 UA Bilirubin 0 mg/dL Last Edit by DARREN Stratton on 09/02/23 09:50 UA Glucose 0 mg/dL Last Edit by DARREN Stratton on 09/02/23 09:50 Results Reviewed Results Reviewed: Laboratory Last Values Urine pH (Auto) 6.0 09/02/23 09:49 Specific [place] (Auto) 1.025 09/02/23 09:49 Urine Protein (Auto) 15 mg/dL 09/02/23 09:49 Glucose (UA)(Auto) 0 mg/dL 09/02/23 09:49 Urine Ketones (Auto) Negative 09/02/23 09:49 Urine Blood (Auto) 0 Zaid/uL 09/02/23 09:49 Urine Nitrite (Auto) Negative 09/02/23 09:49 Urine Bilirubin (Auto) 0 mg/dL 09/02/23 09:49 Urine Urobilinogen (Auto) 0.2 mg/dL 09/02/23 09:49 Leukocyte Esterase (Auto) 0 Raya/uL 09/02/23 09:49 Assessment & Plan Assessment & Plan (1) BPH (benign prostatic hyperplasia): Code(s): N40.0 - Benign prostatic hyperplasia without lower urinary tract symptoms Category: Medical (2) Nocturia more than twice per night: Comment: Follow-up with urology Code(s): R35.1 - Nocturia Category: Medical Plan Restart finasteride Orders: Orders Prostate Specific Antigen 364 Days N40.0 - Benign prostatic hyperplasia without lower urinary tract symptoms AMB Urinalysis Automated Today Z13.9 - Encounter for screening, unspecified Medications: New finasteride 5 mg PO DAILY 90 days 90 tabs 1RF N13.8 - Other obstructive and reflux uropathy, N40.0 - Benign prostatic hyperplasia without lower urinary tract symptoms, N40.1 - Benign prostatic hyperplasia with lower urinary tract symptoms, R33.9 - Retention of urine, unspecified Patient Instructions: Imaging studies, laboratory and physical exam results were discussed and reviewed in detail. No major barriers to patient understanding were identified. An opportunity to ask questions regarding the treatment plan was provided. All questions were answered. The patient expressed understanding and agreement with the above treatment plan. The patient is aware they should contact our office by phone for worsening of their current condition or the appearance of new urologic symptoms. Compliance is encouraged with any medications and followup testing that is ordered. It is a privilege to participate in the urologic care of your patient. If you have any questions or concerns regarding treatment for the above conditions, or other urologic issues, please do not hesitate to contact me. The office telephone contact is [phone]. This note is constructed using voice recognition software. While every effort has been made to ensure accuracy finished cloth examiner errors may have been included. Yours sincerely, Dr Med Watts MD, [facility] - Urology Providers of Expert, Compassionate Care for the Genitourinary System Coding Level of Care Code Est Pt Level 4 (47573) Diagnoses BPH (benign prostatic hyperplasia) N40.0 Nocturia more than twice per night R35.1 CPT Codes Post Residual Void - PVR CPT Code: 22561-Tuez Void Residual by ultrasound ([id number])
== END 2023-09-02 10:05 | disposition home or self-care (01) ==
PROVIDERS: PCP Internal Medicine; Visit Provider Urology
DX: N40.0 Benign prostatic hyperplasia without lower urinary tract symptoms (principal); R35.1 Nocturia; Z13.9 Encounter for screening, unspecified
CPT/HCPCS: 99214

== ENCOUNTER → 2023-09-02 09:27 | Outpatient (BNVA) | payer MEDICARE, OTHER, SELFPAY | PROVIDERS: PCP Internal Medicine; Visit Provider Urology | DX: N40.1 Benign prostatic hyperplasia with lower urinary tract symptoms (principal); R35.1 Nocturia | CPT/HCPCS: 51798; 81003 ==

== ENCOUNTER 2024-02-08 13:32 | Outpatient (REF) | payer MEDICARE, OTHER, SELFPAY ==
[2024-02-08 09:49] VITALS: PULSE 59; O2SAT 99
--- NOTE | 2024-02-08 13:50 | PFT_ITS ---
Indication: Dyspnea Spirometry [FEV1 to FVC 78%; FEV1 2.82 L; FVC 3.63 L. no significant response to bronchodilators noted.] Lung Volumes [Total lung capacity 78% predicted; expiratory reserve volume 45% predicted] Diffusion Capacity [DLCO 96% predicted] Comparisons [None] Interpretation [No obstructive ventilatory defects. No significant response to bronchodilators noted. Maximum voluntary ventilation not available. The patient does have a mild restrictive ventilatory defect consistent with mild restrictive lung disease. Diffusing capacity is within normal limits. Clinical correlation warranted. Imaging studies would be helpful.] MTDD
== END 2024-02-08 13:33 | disposition home or self-care (01) ==
LOC: HO.RESP 13:32
PROVIDERS: PCP Internal Medicine; Visit Provider Internal Medicine
DX: R06.2 Wheezing (principal)
CPT/HCPCS: 94010; 94640; 94727; 94729

== ENCOUNTER → 2024-02-08 13:50 | Outpatient (BNV) | payer MEDICARE, OTHER, SELFPAY | PROVIDERS: PCP Internal Medicine; Visit Provider Hospitalist | DX: R06.2 Wheezing (principal) | CPT/HCPCS: 94060; 94727; 94729 ==

== ENCOUNTER 2024-06-19 08:44 | Outpatient (REF) | payer MEDICARE, OTHER, SELFPAY ==
[2024-06-19 10:03] LABS: MANUAL DIFF FLAG NO
[2024-06-19 10:16] LABS: Basophils Absolute Auto 0.1 X10*3/uL (0.0-0.2); Basophils Percent Auto 0.8 % (0-2); Eosinophils Absolute Auto 0.2 X10*3/uL (0.0-0.4); Eosinophils Percent Auto 1.8 % (0-4); Hematocrit 43.9 % (42.0-52.0); Hemoglobin 14.1 g/dl (14.0-18.0); Imm Gran Abs Auto 0.03 X10*3/uL (0.00-0.03); Imm Gran Pct Auto 0.3 % (0.0-0.4); Lymphocytes Absolute Auto 1.6 X10*3/uL (1.2-4.9); Lymphocytes Percent Auto 15.2 % (20-40); Mean Corpuscular HGB Conc 32.1 g/dl (31.0-36.0); Mean Corpuscular Volume 87.1 fL (80.0-98.0); Mean Platelet Volume 9.6 fL (9.4-12.4); Monocytes Absolute Auto 0.7 X10*3/uL (0.1-1.2); Monocytes Percent Auto 6.7 % (2-11); Neutrophils Absolute Auto 8.1 x10*3/uL (2.0-8.3); Neutrophils Percent Auto 75.2 % (45-73); Platelet Count 277 X10*3/uL (160-400); Red Blood Count 5.04 X10*6/uL (4.60-5.80); Red Cell Distribution Width 12.9 % (11.0-16.0); White Blood Count 10.8 X10*3/uL (4.8-10.8)
[2024-06-19 10:43] LABS: Alanine Aminotransferase 26 U/L (0-40); Albumin Level 4.5 g/dL (3.5-5.0); Alkaline Phosphatase 150 U/L (39-117); Anion Gap 13 (12-20); Aspartate Amino Transferase 32 U/L (5-37); Bilirubin Total 0.4 mg/dL (0.0-1.0); Blood Urea Nitrogen 28 mg/dL (9-16); Calcium 9.7 mg/dL (8.4-10.2); Carbon Dioxide 27 mmol/L (22-29); Chloride 103 mmol/L (96-108); Cholesterol 250 mg/dL (<200); Estimated Glomerular Filt Rate 54; Glucose Fasting 95 mg/dL (60-99); HDL Cholesterol 46 mg/dL (>40); LDL Cholesterol Calculated 187 mg/dL (<100); Potassium 4.5 mmol/L (3.3-5.1); Sodium 138 mmol/L (135-145); Total Protein 7.8 g/dL (6.5-8.0); Triglycerides 89 mg/dL (<150)
[2024-06-19 10:58] LABS: TSH reflex Free T4 2.91 uIU/mL (0.32-4.0)
== END 2024-06-19 08:45 | disposition home or self-care (01) ==
LOC: HO.HMGCLDS 08:44
PROVIDERS: PCP Internal Medicine; Visit Provider Internal Medicine
DX: Z00.00 Encounter for general adult medical examination without abnormal findings (principal); E03.9 Hypothyroidism, unspecified
CPT/HCPCS: 36415; 80053; 80061; 84443; 85025

== ENCOUNTER 2024-06-29 12:25 | Outpatient (AMB) | payer MEDICARE, OTHER, SELFPAY ==
[2024-06-29 12:32] VITALS: BP 118/74; PULSE 54; RESP 18; TEMP 36.6; O2SAT 99; BMI 24.2
--- NOTE | 2024-06-29 12:32 | A.OFFPC_ITS ---
Vital Signs 06/29/24 12:32 Height 5 ft 6 in Weight 150 lb BMI 24.2 BP 118/74 Blood Pressure Location Lt brachial Position Sitting Respiration 18 Pulse 54 Pulse Source Pulse Oximeter Temp 97.8 F Temp Source Oral Pulse Oximetry (%) 99 Oxygen Delivery Method Room Air Intake Visit Reasons: Annual PE-r/scheduled from 06/21 Intake Note: Pt is here today for PE. Allergies penicillin G Allergy (Unknown, Verified 06/29/24 12:43) hives Medication List - Last Reconciled 06/29/24 by Rebeca Durbin MD finasteride 5 mg PO DAILY 90 days levothyroxine 112 mcg PO DAILY metoprolol succinate ER 25 mg PO DAILY [milk thistle ] niacin 500 mg PO DAILY omega-3 fatty acids-vitamin E 1,000 mg caps [saw palmetto ] Tobacco use date assessed: 06/29/24 Fall risk assessment: No Falls in past year Last assessed Fall Risk: 06/29/24 Dental Screening Dental Screen Date: 06/29/24 Did you have a dental visit in the last 12 months?: Yes Did you have a dental problem in the last 6 months where you did not have access to dental care?: No Was dental information given to patient?: Patient has dentist HPI Annual PE-r/scheduled from 06/21 HPI Details Patient presents for physical. He has not been following low- cholesterol diet. Patient reports eating lot of ice cream sweets and red meat before his most recent blood work. Patient is going to [place] in August 09 to visit his 's family [facility] Medical History (Updated 06/29/24 @ 13:01 by Rebeca Durbin MD) HTN (hypertension) Annual physical exam Annual physical exam Hoarseness Hyperlipemia BPH (benign prostatic hyperplasia) Abnormal colonoscopy Hypothyroidism Surgical History Hx of appendectomy Family History Father Diabetes Mother Hypertension Social History Housing: House Patient Tobacco Use Status: Never used Tobacco e-Cigarette/Vaping Use: Never Used Second Hand Smoke Exposure: Yes service: No Current occupational status: retired Cognitive needs: No Hearing needs: No Vision needs: Yes Questionnaire PHQ-9 Over the last 2 weeks, how often have you been bothered by any of the following problems? 1. Little interest or pleasure in doing things: not at all 2. Feeling down, depressed, or hopeless: not at all 3. Trouble falling or staying asleep, or sleeping too much: not at all 4. Feeling tired or having little energy: not at all 5. Poor appetite or overeating: not at all 6. Feeling bad about yourself - or that you are a failure or have let yourself or your family down: not at all 7. Trouble concentrating on things, such as reading the newspaper or watching television: not at all 8. Moving or speaking so slowly that other people could have noticed. Or the opposite - being so fidgety or restless that you have been moving around a lot more than usual: not at all 9. Thoughts that you would be better off or of hurting yourself in some way: not at all Total score: 0 Depression Screening Interpretation: Negative Depression Screening Done: Yes 02431 - PHQ-9 Billing: Yes Source: Developed by Drs. Shashank Shaffer, Chayito Enriquez, Pedro Garces and colleagues, with an educational ryanne from [employer]. Thrive Questionnaire Date Thrive assessed: 06/22/24 I am a: Patient What is your living situation today?: I have a steady place to live Within the past 12 months, did the food you bought not last and you didn't have the money to get more?: Never true Within the past 12 months, did you worry whether your food would run out before you got money to buy more?: Never true Do you have trouble paying for medicines?: No Do you have trouble getting transportation to medical appointments?: No Do you have trouble paying your heating and electricity bill?: No Do you have trouble taking care of your child, family member or friend?: No Do you have trouble with day-to-day activities such as bathing, preparing meals, shopping, managing finances, etc.?: No Are you currently unemployed and looking for a job?: No Are you interested in more education?: No Please select the resources that you would like help with: None Currently or been in a relationship where the following occur: No concerns reported THRIVE Score: 0 AUDIT C Alcohol Use Questionnaire (AUDIT-C) 1. How often do you have a drink containing alcohol?: Monthly or less 2. How many drinks containing alcohol do you have on a typical day when you are drinking?: 1 or 2 3. How often do you have six or more drinks on one occasion?: Never Total Score: 1 KENDALL-7 AMB Questionnaire KENDALL-7 Date KENDALL - 7 assessed: 06/29/24 Feeling nervous, anxious, or on edge: 0 = Not at all Not being able to stop or control worryin = Not at all Worrying too much about different things: 0 = Not at all Trouble relaxin = Not at all Being so restless that it is hard to sit still: 0 = Not at all Becoming easily annoyed or irritable: 0 = Not at all Feeling afraid as if something awful might happen: 0 = Not at all Total KENDALL-7 score (0-4 normal; 5-9 mild; 10-14 moderate; 15-21 severe): 0 Source: Developed by Drs. Shashank Shaffer, Chayito Enriquez, Pedro Garces and colleagues, with an educational ryanne from [employer]. KENDALL-7 Assessment Billing KENDALL-7 Assessment Tool: KENDALL-7 Assessment 20185 Review of Systems Const All systems reviewed & are unremarkable except as noted in HPI and below Eyes Reports no additional complaints ENT Reports no additional complaints Card Reports no additional complaints Resp Reports no additional complaints GI Reports no additional complaints Reports no additional complaints Physical exam (Primary Care) Vital Signs: Last Vital Signs Temp 97.8 F 06/29/24 12:32 Pulse 54 06/29/24 12:32 Resp 18 06/29/24 12:32 BP 118/74 06/29/24 12:32 Pulse Ox 99 06/29/24 12:32 Oxygen Delivery Method Room Air 06/29/24 12:32 BMI result Body Mass Index 24.2 Tobacco/Smoking Status: Tobacco use Status Tobacco use date assessed 06/29/24 06/29/24 12:33 Patient Tobacco Use Status Never used Tobacco 06/29/24 12:33 e-Cigarette/Vaping Use Never Used 06/29/24 12:33 PHQ-9: PHQ-9 Score PHQ-9: Total score 0 06/29/24 13:01 Depression Screening Interpretation: Negative Thrive Assessment: Date of Thrive Assessment Date Thrive assessed 06/22/24 06/29/24 12:33 Currently or been in a relationship where the following occur: No concerns reported Const General: no acute distress HENMT Head: Yes normal to inspection Ears: hearing grossly normal bilaterally Eyes General: appearance normal, both eyes and all related structures Neck Neck: Yes no lymphadenopathy and Yes supple Resp Effort & Inspection: normal respiratory effort Auscultation: clear to auscultation bilaterally Cardio Rhythm: regular rhythm Heart sounds: S1 normal heart sound present and S2 normal heart sound present GI Inspection: Yes normal to inspection Palpation (GI): Soft to palpation Percussion: Yes normal to percussion Auscultation: normal bowel sounds Coding Level of Care Code Est Pt Prev Care >65y(58185) Diagnoses Hyperlipemia E78.5 Abnormal colonoscopy R93.3 Hypothyroidism E03.9 Annual physical exam Z00.00 Additional Codes KENDALL-7 Assessment Billing - KENDALL-7 Assessment Tool: KENDALL-7 Assessment 54391 ([id number]) PHQ-9 - 03948 - PHQ-9 Billing: Yes ([id number]) Assessment & Plan Assessment & Plan (1) Hyperlipemia: Comment: DELINED STATINS Code(s): E78.5 - Hyperlipidemia, unspecified Category: Medical Plan: Continue low-cholesterol diet check lipid profile in 3 months (2) Abnormal colonoscopy: Comment: 12/2019 2 hyperplastic polyps, recheck 10 yrs Code(s): R93.3 - Abnormal findings on diagnostic imaging of other parts of digestive tract Category: Medical Plan: Follow-up with GI (3) Hypothyroidism: Code(s): E03.9 - Hypothyroidism, unspecified Category: Medical Plan: Continue levothyroxine (4) Annual physical exam: Code(s): Z00.00 - Encounter for general adult medical examination without abnormal findings Category: Medical Plan: Well-balanced diet regular physical activity discussed with the patient he will stop taking metoprolol and follow-up in 4 months Orders: Orders Lipid Panel 4 Months E78.5 - Hyperlipidemia, unspecified
== END 2024-06-29 13:10 | disposition home or self-care (01) ==
LOC: HO.HMCC 12:26
PROVIDERS: PCP Internal Medicine; Visit Provider Internal Medicine
DX: Z00.00 Encounter for general adult medical examination without abnormal findings (principal); E78.5 Hyperlipidemia, unspecified; R93.3 Abnormal findings on diagnostic imaging of other parts of digestive tract; E03.9 Hypothyroidism, unspecified

== ENCOUNTER → 2024-06-29 12:25 | Outpatient (BNVA) | payer MEDICARE, OTHER, SELFPAY | PROVIDERS: PCP Internal Medicine; Visit Provider Internal Medicine | DX: Z00.00 Encounter for general adult medical examination without abnormal findings (principal); E78.5 Hyperlipidemia, unspecified; E03.9 Hypothyroidism, unspecified; R93.3 Abnormal findings on diagnostic imaging of other parts of digestive tract | CPT/HCPCS: 96127; 99397 ==

== ENCOUNTER 2024-08-17 09:23 | Outpatient (REF) | payer MEDICARE, OTHER, SELFPAY ==
--- OUTSIDE RECORDS SUMMARY | 2024-08-17 09:50 | XMS_ITS | Patient Health Record ---
Author Organization [facility] Jimmy Martinsley Address [address] [place] [address] Care Team Providers Care Head Porter Baggage Name Role Phone Roshni Worthy DO Primary Care Provider Leslee taveras Lilia Silver Unavailable [phone] Allergies Allergen (clinical drug ingredient) Drug/Non Drug Allergy documented on EMR Reaction Allergy Type Onset Date Status Penicillin hives Drug Allergy Active Reason For Referral No Information Medications Medication SIG (Take, Route, Frequency, Duration) Notes Start Date End Date Status Saw [place] 450 MG Orally Active Aspirin 325 MG 1 tablet Orally Once a day Active Metoprolol Succinate ER 25 MG 1 tablet Orally Once a day Active Levothyroxine Sodium 112 MCG 1 tablet Or ally Once a day Active Lamisil 250 250 MG 1 Tab for 7 days(1 w native) then stop for 3 weeks -repeat cycle 12 months Oral Daily; Duration: 12 months 10/17/2015 Active Fish Oil 1000 MG 1 capsule Orally Onc e a day Active Milk Thistle 250 MG Orally Active Niacin 500 MG 1 tablet Orally Once a day Active Social History Tobacco use other than smoking: Question Answer Notes Are you an other tobacco user? No Problems No Known Problems Plan Of Treatment Pending Test Test Name Order Date *Liver Function Test (LFT) 08/19/2015 *Liver Function Test (LFT) 03/04/2016 *Liver Function Test (LFT) 09/02/2015 Insurance Providers Payer Name Payer Address Payer Phone Subscriber Number Group Number Insured Name Patient Relationship to Insured Coverage Start Date Coverage End Date Roberta ([facility]) [address] [place] [phone] [id number] [place] Spouse - patient is the spouse of the insured Medical (General) History Medical History History ICD Code High blood pressure Thyroid disorder Surgical History Surgery Date(Month/Year) appendectomy 02/2005
--- OUTSIDE RECORDS SUMMARY | 2024-08-17 09:50 | XMS_ITS | Patient Health Record ---
Author Organization [facility] Address [address] [place] [address] Care Team Providers Care Chaplaincy Name Role Phone Rebeca Durbin MD Primary Care Provider Shashank Jasmine Unavailable [phone] Allergies Allergen (clinical drug ingredient) Drug/Non Drug Allergy documented on EMR Reaction Allergy Type Onset Date Status Penicillin Unknown Drug Allergy Active Reason For Referral No Information Medications Medication SIG (Take, Route, Frequency, Duration) Notes Start Date End Date Status Fish Oil 1000 MG 1 capsule Orally Onc e a day Active Metoprolol Succinate ER 25 MG 1 tablet Orally Once a day Active Levothyroxine Sodium 112 MCG 1 tablet Or ally Once a day Active Milk Thistle 250 MG Orally Active Niacin 500 MG 1 tablet Orally Once a day Active Saw [place] 450 MG Orally Active Immunizations Vaccine Route Administration Date Status Comme nts Influenza Unknown 10/10/2019 Administered Problems Problem Type SNOMED Code ICD Code Onset Dates Problem Status W/U Status Risk Notes Problem [id number] Encounter for screening for malignant neoplasm of colon (Z12.11) Active confirmed Problem 489208498 Family history of colonic polyps (Z83.71) Active confirmed Problem [id number] Pre-procedural examination (Z01.818) Active confirmed Plan Of Treatment Future Test Test Name Order Date COLONOSCOPY 06/20/2014 COLONOSCOPY 11/02/2019 Insurance Providers Payer Name Payer Address Payer Phone Subscriber Number Group Number Insured Name Patient Relationship to Insured Coverage Start Date Coverage End Date [employer] [address] [place] [address] [id number] BOOKER MARTINEZ Self - patient is the insured Medical (General) History Medical History History ICD Code Screening colonoscopy 05-11-19--neg. except for a hyperplastic polyp, mild sigmoid diverticulosis, and internal hemorrhoids; similar findings in 09/2014 HTN History of elevated liver fu nction test--minimal elevation of the ALT--neg Hep B and C studies in 2006, normal Iron studies in 2007, U/S c/w Fatty liver Hypothyroidism Denies [place],DM,CVA,Lung disease,renal dise ase Surgical History Surgery Date(Month/Year) Appendectomy
[2024-08-17 11:45] LABS: Prostate Specific Antigen 1.50 ng/mL (<0.05-4.0)
== END 2024-08-17 09:24 | disposition home or self-care (01) ==
LOC: HO.HMGCLDS 09:23
PROVIDERS: PCP Internal Medicine; Visit Provider Urology
DX: N40.0 Benign prostatic hyperplasia without lower urinary tract symptoms (principal); Z12.5 Encounter for screening for malignant neoplasm of prostate
CPT/HCPCS: 36415; 84153

== ENCOUNTER 2024-08-25 11:03 | Outpatient (AMB) | payer OTHER, MEDICARE, SELFPAY ==
--- NOTE | 2024-08-25 11:17 | MHC.OFFVIS ---
Intake Visit Reasons: 1yr/PSA Intake Note: Patient is present for 1 yr Follow Up with PSA Urology Med: finasteride Antibiotic Allergy: Penicillin Blood Thinner: None today's PVR:9 [facility] Diagnostic Support Specialist Required: No Accompanied by: Self / Same As Patient Allergies penicillin G Allergy (Unknown, Verified 08/25/24 11:32) hives HPI Comments Details: Harsha is a pleasant male. He is a patient of Dr. Durbin. He is seen for the following urologic conditions - lower urinary tract symptoms Yearly follow-up PSA 09/01 1.5 Could reduce finasteride to Wednesday, Wednesday, Wednesday Twelve month follow-up Lower urinary tract symptoms Current evaluation for response to therapy Initial presentation for lower urinary tract symptoms Associated elevated PSA Has weakness of stream and nocturia 2-3 times Current medications - Prior therapy includes combination medication DIOMEDES large prostate PSA 02/27 2.1, 09/28 4.8, 01/28 2.4, 03/01 2.1, 05/31 2.2, 06/01 3.3, 09/01 1.5 [facility] Medical History (Updated 06/29/24 @ 13:01 by Rebeca Durbin MD) HTN (hypertension) Annual physical exam Annual physical exam Hoarseness Hyperlipemia BPH (benign prostatic hyperplasia) Abnormal colonoscopy Hypothyroidism Surgical History Hx of appendectomy Family History Father Diabetes Mother Hypertension Social History Housing: House Patient Tobacco Use Status: Never used Tobacco e-Cigarette/Vaping Use: Never Used Second Hand Smoke Exposure: Yes service: No Current occupational status: retired Cognitive needs: No Hearing needs: No Vision needs: Yes Review of Systems Const Denies chills and Denies fever(s) Card Reports no additional complaints and Denies syncope Resp Denies cough GI Denies abdominal pain and Denies heartburn Reports as per HPI and Denies change in libido Neuro Denies syncope Psych Denies change in libido Endo Denies change in libido Physical Exam Const General: cooperative, healthy appearing, comfortable and no acute distress Orientation/consciousness: patient oriented x3 HEENT Face and sinus: Yes normal facial exam Mouth: moist mucous membranes Neck Neck: Yes normal visual inspection, Yes full ROM and Yes trachea midline Chest Chest palpation & inspection: normal inspection of the chest Resp Effort & Inspection: normal respiratory effort, able to speak in complete sentences and no respiratory distress GI Inspection: Yes normal to inspection Back/Spine/Pelvis Cervical Spine: normal cervical lordosis Thoracic/Lumbar Spine: thoracic and lumbar spine normal to inspection Skin General skin exam: no rashes or lesions noted Neuro General: patient oriented x3, gait normal, tone normal and moves all extremities Extrem General: Yes normal to inspection and Yes capillary refill normal Assessment & Plan Assessment & Plan (1) Nocturia more than twice per night: Comment: Follow-up with urology Code(s): R35.1 - Nocturia Category: Medical (2) BPH (benign prostatic hyperplasia): Code(s): N40.0 - Benign prostatic hyperplasia without lower urinary tract symptoms Category: Medical Plan Twelve month follow-up Orders: Orders Prostate Specific Antigen 12 Months N40.0 - Benign prostatic hyperplasia without lower urinary tract symptoms Patient Instructions: This note is constructed using voice recognition software. While every effort has been made to ensure accuracy instrument and control service person errors may have been included. Imaging studies, laboratory and physical exam results were discussed and reviewed in detail. No major barriers to patient understanding were identified. An opportunity to ask questions regarding the treatment plan was provided. All questions were answered. The patient expressed understanding and agreement with the above treatment plan. The patient is aware they should contact our office by phone for worsening of their current condition or the appearance of new urologic symptoms. Compliance is encouraged with any medications and followup testing that is ordered. It is a privilege to participate in the urologic care of your patient. If you have any questions or concerns regarding treatment for the above conditions, or other urologic issues, please do not hesitate to contact me. The office telephone contact is [phone]. Sincerely, Dr Med Watts MD, [facility] - Urology Compassionate Specialist Care for the Genitourinary System Coding Level of Care Code Est Pt Level 4 (98642) Diagnoses Nocturia more than twice per night R35.1 BPH (benign prostatic hyperplasia) N40.0
--- OUTSIDE RECORDS SUMMARY | 2024-08-25 11:39 | XMS_ITS | Patient Health Record ---
Author Organization [facility] Address [address] [place] [address] Care Team Providers Care Cdl B Driver Name Role Phone Rebeca Durbin MD Primary Care Provider Shashank Jasmine Unavailable [phone] Allergies Allergen (clinical drug ingredient) Drug/Non Drug [...] tablet Orally Once a day Active Saw [place] 450 MG Orally Active Immunizations Vaccine Route Administration Date Status Comme nts Influenza Unknown 10/10/2019 Administered Problems Problem Type SNOMED Code ICD Code Onset Dates Problem Status W/U Status Risk Notes Problem [id number] Encounter for screening for malignant neoplasm of colon (Z12.11) Active confirmed Problem 871732360 Family history of colonic polyps (Z83.71) Active confirmed Problem [id number] Pre-procedural examination (Z01.818) Active confirmed Plan Of Treatment Future Test Test Name Order Date COLONOSCOPY 06/20/2014 COLONOSCOPY 11/02/2019 Insurance Providers Payer Name Payer Address Payer Phone Subscriber Number Group Number Insured Name Patient Relationship to Insured Coverage Start Date Coverage End Date [employer]ITY [address] [place] [address] [id number] BOOKER MARTINEZ Self - patient is the [...] 2007, U/S c/w Fatty liver Hypothyroidism Denies [place],DM,CVA,Lung disease,renal dise ase Surgical History Surgery Date(Month/Year) Appendectomy
--- OUTSIDE RECORDS SUMMARY | 2024-08-25 11:39 | XMS_ITS | Patient Health Record ---
Author Organization [facility] Jimmy Martinsley Address [address] [place] [address] Care Team Providers Care Professional Poker Player Name Role Phone Roshni Worthy DO Primary Care Provider Leslee taveras Lilia Silver Unavailable [phone] Allergies Allergen (clinical drug ingredient) Drug/Non Drug Allergy documented on EMR Reaction Allergy Type Onset Date Status Penicillin hives Drug Allergy Active Reason For Referral No Information Medications Medication SIG (Take, Route, Frequency, Duration) Notes Start Date End Date Status Saw [place] 450 MG Orally Active Aspirin 325 MG 1 tablet Orally Once a day Active Metoprolol Succinate ER 25 MG 1 tablet Orally Once a day Active Levothyroxine Sodium 112 MCG 1 tablet Or ally Once a day Active Lamisil 250 250 MG 1 Tab for 7 days(1 w ho-chunk) then stop for 3 weeks -repeat cycle [...] Coverage Start Date Coverage End Date Roberta ([facility]) [address] [place] [id number] [place] Spouse - patient is the spouse of the insured Medical (General) History Medical History History ICD Code High blood pressure Thyroid disorder Surgical History Surgery Date(Month/Year) appendectomy 02/2005
== END 2024-08-25 11:47 | disposition home or self-care (01) ==
LOC: HO.HUSH 11:04
PROVIDERS: PCP Internal Medicine; Visit Provider Urology
DX: R35.1 Nocturia (principal); N40.0 Benign prostatic hyperplasia without lower urinary tract symptoms; Z13.9 Encounter for screening, unspecified
CPT/HCPCS: 99214

== ENCOUNTER → 2024-08-25 11:03 | Outpatient (BNVA) | payer OTHER, MEDICARE, SELFPAY | PROVIDERS: PCP Internal Medicine; Visit Provider Urology | DX: N40.0 Benign prostatic hyperplasia without lower urinary tract symptoms (principal); R35.1 Nocturia | CPT/HCPCS: 51798; 81003 ==

== ENCOUNTER 2024-10-24 10:40 | Outpatient (REF) | payer MEDICARE, OTHER, SELFPAY ==
[2024-10-24 14:15] LABS: Cholesterol 213 mg/dL (<200); HDL Cholesterol 41 mg/dL (>40); Triglycerides 130 mg/dL (<150)
== END 2024-10-24 10:41 | disposition home or self-care (01) ==
LOC: HO.HMGCLDS 10:40
PROVIDERS: PCP Internal Medicine; Visit Provider Internal Medicine
DX: E78.5 Hyperlipidemia, unspecified (principal)
CPT/HCPCS: 36415; 80061